=== PATIENT | male | born 1935 | race Two or more races ===

== ENCOUNTER 2019-04-15 08:54 | Emergency (ER) | payer OTHER ==
[~2019-04-15] VITALS: Ht 182.9 cm; Wt 81.6 kg
[~2019-04-15 08:54] MED LIST: CIPRO100 MG PO; COZAAR25 MG; PROTONIX20 MG; RELAFEN500 MG PO
== END 2019-04-15 12:57 | disposition home or self-care (01) ==
LOC: ER 08:54
DX: N39.0 Urinary tract infection, site not specified (principal); R10.31 Right lower quadrant pain

== ENCOUNTER 2019-04-21 08:42 | Emergency (ER) | payer OTHER ==
[~2019-04-21] VITALS: Ht 182.9 cm; Wt 80.3 kg
[2019-04-21] MEDS ORDERED: MEDROLPACK PO (15:55)
[2019-04-21] MEDS ORDERED: DOLOGESIC-DF 51 EACH PO (15:55)
== END 2019-04-21 16:56 | disposition home or self-care (01) ==
LOC: ER 08:42
DX: N20.0 Calculus of kidney (principal); M54.5 Low back pain

== ENCOUNTER 2019-06-06 17:39 | Inpatient (IN) | payer OTHER ==
[~2019-06-06] VITALS: Ht 182.9 cm; Wt 77.1 kg
[~2019-06-06 17:39] MED LIST changes: +DOLOGESIC-DF 51 EACH PO; +MEDROLPACK PO
--- NOTE | 2019-06-06 17:42 | NUR ---
SE RECIBE PACIENTE EN AMBULANCIA REFIERE SANGRADO POR BOCA Y RECTAL SE MANUEL S/V Y UBICA EN AREA DE INTENSIVO ER
--- NOTE | 2019-06-06 18:21 | NUR ---
SE RECIBE PTE A BENIGNO DE EMERGENCIAS AREA DE CRITICO # 2 PTE MASCULINO DE 83 YRS,PTE ALERTA X 3,LLEGA EN AMBULANCIA EN COMPANIA DE PARAMEDICOS Y FAMILIAR QUIEN REFIERE UPPER AND LOWER GI BLEEDING DESDE ESTA MANANA, SE ACOMODA EN CAMA # 2 CON BARANDAS ELEVADAS POR ROBERSON SEGURIDAD,SE CONECTA A MONITOR CARDIACO Y OXIMETRIA DE PULSO,DR Arin'BRADLEY EVALUA Y ORDENA IVF'S CON MEDICAMENTOS Y LABORATORIOS, SE OBSERVARAN POR CAMBIOS EN ROBERSON CONDICION DE LURDSE.
--- NOTE | 2019-06-06 19:09 | NUR ---
SE LE SALTY TUBO MARKEL PARA TYPE AND CROSS PARA 2 UNIDADES DE PRBC'S AND HOLD. SE LLEVA A BANCO DE BRANDI.
--- NOTE | 2019-06-07 03:00 | NUR ---
SE RECIBE PTE ALERTA Y ORIENTADO X3 EN CAMA CON BARANDAS ELEVADAS CONECTADO A MONITOR CARDIACO. SE RECIBE PTE CANALIZADO EN MANO DERECHA AREA MARICARMEN DE EDEMA Y DE ENROJECIMIENTO. SE RECIBE PTE CON DRIP DE PROTONIX 80MG/100ML BAJANDO A 10ML/HR, DRIP. 9NSS BAJANDO A 100ML/HR. SE RECIBE PTE EVACUADO CON MELENA. 11:30PM SE CANALIZA EN BRAZO Y ANTEBRAZO EDDIE AREAS LIBRES DE EDEMA Y DE ENROJECIMIENTO. SE MANUEL MUESTRAS DE LAB. JORGE ORDEN MEDICA BAJO MEDIDAS ASEPTICAS. SE AMANDA CAMBIO DE PANAL.SE LE INSERTA FLANNERY DE MANERA ESTERIL JORGE ORDEN MEDICA Y SE SALTY MUESTRA DE U/A PENDIG.PTE FIRMA CONSENTIMIENTO DE TRANSFUSION DE BRANDI. 12:30PM SE LE ADMINISTRAN MEDICAMENTO JORGE ORDEN MEDICA DRIP.SANDOSTATIN 1250MCG/250ML BAJANDO A 10ML/HR. 1:00AM SE LE AMANDA CAMBIO DE PANAL POR MELENA.
[2019-06-11] MEDS ORDERED: TRAM1TAB98 PO (10:28)
[2019-06-11] MEDS ORDERED: PANTOPRAZOLE SO40 MG PO (10:28)
== END 2019-06-11 15:33 | disposition home or self-care (01) | DRG 378 ==
LOC: ER 17:39 → ICU-2 06-07 07:55 → SURG 06-07 07:55 → MEDJ 06-10 17:04
PROVIDERS: ADMIT Internal Medicine
PROC: BW21ZZZ Computerized Tomography (CT Scan) of Abdomen and Pelvis (ICD-10-PCS; 2019-06-07)
PROC: 4A12X4Z Monitoring of Cardiac Electrical Activity, External Approach (ICD-10-PCS; 2019-06-09)
PROC: 0DB98ZX Excision of Duodenum, Via Natural or Artificial Opening Endoscopic, Diagnostic (ICD-10-PCS; principal; 2019-06-10)
PROC: 0DB78ZX Excision of Stomach, Pylorus, Via Natural or Artificial Opening Endoscopic, Diagnostic (ICD-10-PCS; 2019-06-10)
PROC: 0DB68ZX Excision of Stomach, Via Natural or Artificial Opening Endoscopic, Diagnostic (ICD-10-PCS; 2019-06-10)
DX: K29.51 Unspecified chronic gastritis with bleeding (principal); N39.0 Urinary tract infection, site not specified; K57.30 Diverticulosis of large intestine without perforation or abscess without bleeding; N20.0 Calculus of kidney; K29.81 Duodenitis with bleeding

== ENCOUNTER 2020-10-27 14:58 | Outpatient (CLI) | payer OTHER ==
[~2020-10-27 14:58] MED LIST changes: +PANTOPRAZOLE SO40 MG PO; +TRAM1TAB98 PO
== END 2020-10-27 15:13 | disposition home or self-care (01) ==
LOC: RAD 14:58
PROVIDERS: ATTEND Orthopaedic Surgery
DX: M16.12 Unilateral primary osteoarthritis, left hip (principal); M25.551 Pain in right hip; M25.561 Pain in right knee; M25.552 Pain in left hip; M25.562 Pain in left knee

== ENCOUNTER 2020-10-29 08:14 | Outpatient (CLI) | payer OTHER | END 2020-10-29 08:28 | disposition home or self-care (01) | LOC: RAD 08:14 | PROVIDERS: ATTEND Orthopaedic Surgery | DX: M51.37 Other intervertebral disc degeneration, lumbosacral region (principal); M54.5 Low back pain ==

== ENCOUNTER 2020-11-09 09:20 | Outpatient (CLI) | payer OTHER | END 2020-11-09 09:26 | disposition home or self-care (01) | LOC: TOM 09:20 | PROVIDERS: ATTEND Orthopaedic Surgery | DX: S70.02XA Contusion of left hip, initial encounter (principal); M25.552 Pain in left hip; M81.0 Age-related osteoporosis without current pathological fracture ==

== ENCOUNTER 2020-11-10 07:46 | Outpatient (CLI) | payer OTHER | END 2020-11-10 07:51 | disposition home or self-care (01) | LOC: NUCLEAR 07:46 | PROVIDERS: ATTEND Orthopaedic Surgery | DX: M81.0 Age-related osteoporosis without current pathological fracture (principal) ==

== ENCOUNTER 2022-05-29 13:45 | Emergency (ER) | payer OTHER ==
[~2022-05-29] VITALS: Ht 182.9 cm; Wt 63.5 kg
[2022-05-29] MEDS ORDERED: METAXALONE800 MG PO (14:01)
[2022-05-29] MEDS ORDERED: HYDRALAZINE HCL50 MG PO (14:01)
== END 2022-05-29 21:05 | disposition home or self-care (01) ==
LOC: ER 13:45
DX: R31.9 Hematuria, unspecified (principal); N39.0 Urinary tract infection, site not specified; Z88.6 Allergy status to analgesic agent

== ENCOUNTER 2023-04-27 15:39 | Inpatient (IN) | payer OTHER ==
[~2023-04-27] VITALS: Ht 182.9 cm; Wt 63.5 kg
[~2023-04-27 15:39] MED LIST changes: +HYDRALAZINE HCL50 MG PO; +METAXALONE800 MG PO
[2023-05-01] MEDS ORDERED: HYDRALAZINE HCL50 MG PO (06:54)
[2023-05-01] MEDS ORDERED: PANTOPRAZOLE SO40 MG PO (06:54)
== END 2023-05-01 16:33 | disposition home or self-care (01) | DRG 194 ==
LOC: ER 15:39 → SURH 22:18 → SEC-K 23:33 → SURH 04-28 02:18
PROVIDERS: Emergency Medicine; General Practice; Internal Medicine; ADMIT Emergency Medicine Pediatric Emergency Medicine; ATTEND Emergency Medicine Pediatric Emergency Medicine
PROC: BW21ZZZ Computerized Tomography (CT Scan) of Abdomen and Pelvis (ICD-10-PCS; principal; 2023-04-27)
PROC: BW24ZZZ Computerized Tomography (CT Scan) of Chest and Abdomen (ICD-10-PCS; 2023-04-28)
PROC: B24BZZZ Ultrasonography of Heart with Aorta (ICD-10-PCS; 2023-04-28)
PROC: 4A12X4Z Monitoring of Cardiac Electrical Activity, External Approach (ICD-10-PCS; 2023-04-28)
DX: J10.00 Influenza due to other identified influenza virus with unspecified type of pneumonia (principal); N39.0 Urinary tract infection, site not specified; J18.9 Pneumonia, unspecified organism; K52.89 Other specified noninfective gastroenteritis and colitis; J84.10 Pulmonary fibrosis, unspecified; I10 Essential (primary) hypertension; J44.9 Chronic obstructive pulmonary disease, unspecified; Z74.01 Bed confinement status; Z20.822 Contact with and (suspected) exposure to COVID-19